=== PATIENT | female | born 1975 | race Two or more races ===

== ENCOUNTER 2022-04-15 01:35 | Emergency (ER) | payer BC ==
[~2022-04-15] VITALS: Ht 152.4 cm; Wt 44.0 kg
[2022-04-15] MEDS ORDERED: MICARDIS80 MG (01:46)
== END 2022-04-15 04:24 | disposition home or self-care (01) ==
LOC: ER 01:35
DX: K29.70 Gastritis, unspecified, without bleeding (principal); Z87.442 Personal history of urinary calculi